=== PATIENT | male | born 1995 | race Caucasian/White ===

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

== ENCOUNTER 2018-04-06 20:57 | Emergency (ER) | payer OTHER ==
--- NOTE | 2018-04-06 21:32 | XR ---
EXAMINATION TYPE: XR hand complete LT DATE OF EXAM: 04/06/2018 COMPARISON: NONE HISTORY: Wrist pain TECHNIQUE: 3 views FINDINGS: Metacarpals are intact. There is nondisplaced fracture of the waist of the scaphoid bone. T here is no dislocation. Intercarpal joint spaces are fairly normal. IMPRESSION: Nondisplaced scaphoid fracture.
--- NOTE | 2018-04-06 21:32 | XR ---
EXAMINATION TYPE: XR wrist complete LT DATE OF EXAM: 04/06/2018 COMPARISON: NONE HISTORY: Pain TECHNIQUE: 4 views FINDINGS: There is nondisplaced fracture through the waist of the scaphoid bone. The intercarpal join t spaces are normal. Distal radius and ulna appear intact. Metacarpals are intact. IMPRESSION: Nondisplaced scaphoid fracture.
--- NOTE | 2018-04-06 21:56 | ED ---
Upper Extremity HPI - General Source: patient Mode of arrival: ambulatory Limitations: no limitations <Page Borrego - Last Filed: 04/07/18 01:10> <Charla Prado - Last Filed: 04/11/18 02:14> - General Chief Complaint: Extremity Injury, Upper Stated Complaint: Wrist injury Time Seen by Provider: 04/06/18 21:47 - History of Present Illness Initial Comments: This is a 22-year-old male who says past medical history presenting today for chief complaint of left wrist pain. Patient states yesterday at while at work he fell into a hole, he is unsure how far he fell. Patient denies any head injury, back pain, nausea, vomiting, diplopia, visual changes or any other complaints. Patient does admit to left wrist pain stating that his wrist was behind him when he fell he thinks he twisted his thumb back. Patient states he has pain with range of motion left wrist, and mild soft tissue swelling. Patient denies any numbness, tingling or loss of sensation. Patient denies any wrist drop. Patient denies any coolness or pallor of the extremity. Patient denies any lesions lacerations or abrasions. Patient denies injury to any other extremity. Patient states he is feeling well aside from the left wrist pain. Patient denies taking any medication for pain. Patient presents today for evaluation. Remainder of ROS is negative, patient denies any recent fever, chills, shortness of breath, chest pain, back pain, abdominal pain, nausea or vomiting, numbness or tingling, dysuria or hematuria, constipation or diarrhea, headaches or visual changes, or any other complaints. Upon arrival patient's vital signs are within normal limits. Patient well-appearing. No signs of acute distress. (Page Borrego) - Related Data Home Medications Medication Instructions Recorded Confirmed Fexofenadine HCl [Kendra Allergy] 60 mg PO DAILY 10/15/16 11/09/16 Previous Rx's Medication Instructions Recorded Cephalexin [Keflex] 500 mg PO Q8HR #21 cap 11/09/16 Sulfamethox-Tmp 800-160Mg [Bactrim 1 tab PO Q12HR #28 tab 11/09/16 DS 800-160 mg] Allergies Allergy/AdvReac Type Severity Reaction Status Date / Time No Known Allergies Allergy Verified 04/06/18 21:11 Review of Systems ROS Other: All systems not noted in ROS Statement are negative. <Page Borrego - Last Filed: 04/07/18 01:10> ROS Other: All systems not noted in ROS Statement are negative. <Arcelia Pradoica P - Last Filed: 04/11/18 02:14> ROS Statement: Those systems with pertinent positive or pertinent negative responses have been documented in the HPI. Past Medical History Past Medical History: Asthma History of Any Multi-Drug Resistant Organisms: None Reported Past Surgical History: Hernia Repair, Orthopedic Surgery Additional Past Surgical History / Comment(s): rt knee Past Psychological History: Depression Smoking Status: Current every day smoker Past Alcohol Use History: Occasional Past Drug Use History: Marijuana <Page Borrego - Last Filed: 04/07/18 01:10> General Exam Limitations: no limitations <Page Borrego - Last Filed: 04/07/18 01:10> <Charla Prado P - Last Filed: 04/11/18 02:14> - General Exam Comments Initial Comments: General: The patient is awake and alert, in no distress, and does not appear acutely ill. Eye: Pupils are equal, round and reactive to light, extra-ocular movements are intact. No nystagmus. There is normal conjunctiva bilaterally. No signs of icterus. Ears, nose, mouth and throat: There are moist mucous membranes and no oral lesions. Neck: The neck is supple, there is no tenderness or JVD. No midline tenderness to patient the cervical spine. Pt is able to fully range at the cervical spine without difficulty. Cardiovascular: There is a regular rate and rhythm. No murmur, rub or gallop is appreciated. Respiratory: Lungs are clear to auscultation, respirations are non-labored, breath sounds are equal. No wheezes, stridor, rales, or rhonchi. Musculoskeletal: Upon inspection of the wrist bilaterally, left appears to have soft tissue swelling where his right is without. No ecchymosis or erythema lacerations or abrasion noted bilaterally. No pallor or coolness of the extremities. Patient is able to fully range at the right wrist. Patient has limited range of motion of the left wrist secondary to pain. Patient refuses to fully strength test of the left wrist secondary to pain. Patient has significant scaphoid tenderness.Strength 5/5 of the remainder of the joints of the left upper extremity, as well as the right upper cavity.. Sensation intact both proximally and distally of the injury equal and comparison with the right upper extremity. Radial pulses equal bilaterally 2+. She was able to make the okay fingers crossed thumbs-up and high-five extending at the left wrist, there is no evidence of risk strep. Ulnar, median and radial nerve appear intact. Compartments are all soft and compressible. No noted pain out of proportion on examination. Neurological: A&O x 3. CN II-XII intact, There are no obvious motor or sensory deficits. Coordination appears grossly intact. Speech is normal. Skin: Skin is warm and dry and no rashes or lesions are noted. Psychiatric: Cooperative, appropriate mood & affect, normal judgment. (Page Borrego) Vital Signs 04/06/18 04/06/18 21:07 23:37 Temperature 98.3 F 97.8 F Pulse Rate 75 78 Respiratory 18 20 Rate Blood Pressure 117/81 123/78 O2 Sat by Pulse 99 98 Oximetry Medical Decision Making <Page Borrego - Last Filed: 04/07/18 01:10> <Charla Prado - Last Filed: 04/11/18 02:14> - Medical Decision Making Patient neurovascular intact, compartments are soft and compressible. Examination concerning for scaphoid fracture given significant scaphoid tenderness. X-ray revealed a nondisplaced scaphoid fracture, I discussed at length the risk of avascular necrosis and complications from scaphoid fracture. Patient is placed in a thumb spica splint and encouraged to follow up as soon as possible within the next 1-2 days with repeat surgery for further evaluation. Patient is aware of the risks of all that this type of fracture. Patient verbalized understanding of the importance of follow-up. Patient was given Toradol for pain management. Patient is instructed to use ibuprofen and Tylenol outpatient for pain management as well as elevation of the wrist to control swelling. Patient was placed in a sling for comfort. Patient will be discharged with orthopedic follow-up. I'll return parameters were discussed at length, patient verbalized understanding. Patient was discharged in stable condition after discussing the case with Dr. Prado. Pt started in stable condition appearing well. (Page Borrego) I was available for consultation in the emergency department. The history and physical exam were done by the midlevel provider. I was consulted for this patient's care. I reviewed the case with the midlevel provider and based on their presentation of the patient, I agree with the assessment, medical decision making and plan of care as documented. (Charla Prado) Disposition Is patient prescribed a controlled substance at d/c from ED?: No Time of Disposition: 21:56 <Page Borrego - Last Filed: 04/07/18 01:10> <Charla Prado - Last Filed: 04/11/18 02:14> Clinical Impression: Scaphoid fracture Disposition: HOME SELF-CARE Condition: Good Instructions: Scaphoid Fracture (ED) Additional Instructions: Please use medication as discussed. Please follow-up with orthopedic surgery in next 24-48 hours- it is important to follow-up given the increase risk of avascular necrosis as discussed. Please return to emergency room if the symptoms increase or worsen or for any other concerns. Referrals: None,Stated [Primary Care Provider] - 1-2 days Robin Arredondo PAC [[employer]] - 1-2 days
[2018-04-06] MEDS ORDERED: KETOROLAC 30 MG/ML 1 ML VIAL IM STA (22:28)
[2018-04-06 23:38] VITALS: BP 123/78; PULSE 78; RESP 20; TEMP 97.8
== END 2018-04-06 23:37 | disposition home or self-care (01) ==
LOC: EC 20:57
DX: S62.002A Unspecified fracture of navicular [scaphoid] bone of left wrist, initial encounter for closed fracture (principal); F17.200 Nicotine dependence, unspecified, uncomplicated; Z79.899 Other long term (current) drug therapy; W17.2XXA Fall into hole, initial encounter; Y92.69 Other specified industrial and construction area as the place of occurrence of the external cause
CPT/HCPCS: 99283 ×2; 29125 ×2; 96372 ×2; 73110; 73130; J1885